=== PATIENT | male | born 1965 | race Two or more races ===

== ENCOUNTER 2019-04-01 21:19 | Emergency (ER) | payer SELFPAY ==
--- NOTE | 2019-04-01 21:42 | EDM.PDOC ---
ED HPI GENERAL MEDICAL PROBLEM - General Chief Complaint: General Stated Complaint: MEDICAL CLEARANCE Time Seen by Provider: 04/01/19 21:21 Source of Information: Reports: Patient History Limitations: Reports: No Limitations - History of Present Illness INITIAL COMMENTS - FREE TEXT/NARRATIVE: Presents via EMS. A local hotel found the patient sleeping in the hallway and called EMS after they had difficulty arousing him. EMS reported that he was stable vitally and joking with them the entire trip. He is difficult to evaluate because he makes a joke out of every question I ask, winks. He states that he has hypertension but doesn't take his medications all the time. He has cigarettes with him. Stale alcohol on his breath. - Related Data Allergies Allergy/AdvReac Type Severity Reaction Status Date / Time Unable to Assess Allergy Unverified 04/01/19 21:30 Home Meds: Home Meds . [Unable to Verify Home Med List] 04/01/19 [History] ED ROS GENERAL - Review of Systems Review Of Systems: ROS reveals no pertinent complaints other than HPI. ED EXAM, GENERAL - Physical Exam Exam: See Below General Appearance: Alert, No Apparent Distress (Happy and joking.) Ears: Normal External Exam Nose: Normal Inspection Throat/Mouth: Normal Inspection, Perioral Cyanosis Head: Atraumatic Neck: Normal Inspection Respiratory/Chest: No Respiratory Distress, Lungs Clear, Normal Breath Sounds Cardiovascular: Normal Peripheral Pulses, Regular Rate, Rhythm, No Edema, No Murmur GI/Abdominal: Normal Bowel Sounds, Soft, Non-Tender, No Distention Back Exam: Normal Inspection Extremities: Normal Inspection, Normal Range of Motion, Other (Walked to the bathroom and back) Neurological: Alert, Oriented Psychiatric: Normal Affect, Normal Mood Skin Exam: Warm, Dry, Intact, Normal Color, No Rash Lymphatic: No Adenopathy Course - Vital Signs Last Recorded V/S: Last Vital Signs Temp 36.3 C 04/01/19 21:25 Pulse 104 H 04/01/19 21:25 Resp 23 H 04/01/19 21:25 BP 109/61 04/01/19 21:25 Pulse Ox 94 L 04/01/19 21:25 Departure - Departure Time of Disposition: 21:41 Disposition: Home, Self-Care 01 Clinical Impression: Encounter for medical screening examination - Discharge Information Referrals: [facility] [Outside] [facility] [Outside]
== END 2019-04-01 22:30 | disposition home or self-care (01) ==
LOC: MW.ED 21:19
DX: Z13.9 Encounter for screening, unspecified (principal)
CPT/HCPCS: 99282; 99284